=== PATIENT | female | born 1955 | race Caucasian/White ===

== ENCOUNTER → 2016-10-16 | Day surgery (SDC) | payer OTHER ==
--- NOTE | 2016-10-14 14:14 | MH ---
cc: Nick ADAMS M.D. DATE OF ADMISSION: 10/16/2016 ADMITTING DIAGNOSIS Internal derangement left knee with subluxating patella now for arthroscopy and lateral retinacular release. HISTORY OF PRESENT ILLNESS This pleasant 61-year-old female is being admitted today for arthroscopy of the left knee due to chondromalacia patella with some subluxation and possible loose bodies. PAST MEDICAL HISTORY 1. Arthritis. 2. Back pain. MEDICATIONS Current medications include: 1. Vitamin-B12. 2. Metoprolol. PAST SURGICAL HISTORY 1. Two left knee arthroscopies back in 1999 and 2001 for removal of loose bodies and chondroplasty. 2. Hemorrhoid surgery in the past as well. SOCIAL HISTORY She does not smoke, drinks occasionally. ALLERGIES No known allergies. REVIEW OF SYSTEMS Noncontributory. FAMILY HISTORY Noncontributory. PHYSICAL EXAMINATION GENERAL: We find a 61-year-old female well-developed, well-nourished oriented x3 complaining of pain in the left knee. VITAL SIGNS: Blood pressure 108/62, pulse 62 and regular, respirations 16, temperature 98.1, pulse oximetry 99% on room air. HEENT: Eyes PERRLA, EOMI. Ears, nose and mouth clear. NECK: Supple. LUNGS: Clear. HEART: Regular rate. ABDOMEN: Soft. Positive bowel sounds. Nontender. EXTREMITIES: The left knee is tender with crepitance on range of motion in the patellofemoral joint. IMPRESSION The impression at this time is chondromalacia patella with some subluxation. PLAN The plan is admission for arthroscopy and lateral retinacular release left knee today. The patient was given a prescription for postoperative pain control in the office. She understands to use Hibiclens scrub and Bactroban preoperatively. MD LUZ Spivey/NIKKI /2:00 PM /2:06 PM
[~2016-10-16] VITALS: Ht 172.7 cm; Wt 64.5 kg
[~2016-10-16] MED LIST: *MEPERIDINE 25 MG INJ VIAL PERIprocedural Use ONLY ONE; *morphine SULFATE 8 MG/ML PERIprocedure ONLY ONE; ACETAMINOPHEN 1000 MG/100 ML VIAL IV ONE; ACETAMINOPHEN/HYDROcodone 325 MG/5 MG TAB PO PRN; AUGM875T PO; BUPIVACAINE HCL PF 0.25% 30 ML VIAL INFIL ONE; BUPIVACAINE HCL PF 0.25% 30 ML VIAL ONE; CHLORHEXIDINE GLUCONATE 2 % 1 PACK (2 CLOTHS) TOPICAL PRN; CHLORHEXIDINE GLUCONATE 4% SOLN 120 ML BTL TOPICAL SCH; CYAN100025 SL; DO NOT ADM ANY ANTICOAGULANT DRUGS PRN; INSULIN HUMAN REGULAR 1,000 UNITS/10 ML VIAL SQ PRN; LACTATED RINGER'S 1000 ML INJ 1,000 ML IV ONE; LACTATED RINGER'S 1000 ML IV PRN; MEPERIDINE HCL 50 MG/ML VIAL IM PRN; METO25TA6 PO; METOPROLOL TARTRATE 25 MG TAB PO PRN; MIDAZOLAM HCL 2 MG/2 ML VIAL ONE; ONDANSETRON HCL 4 MG/2 ML VIAL IV PUSH ONE; ONDANSETRON HCL 4 MG/2 ML VIAL IV PUSH PRN; POVIDONE IODINE 5% (ANTISEPSIS KIT) 4 APPLICATIONS EACH NARE PRN; PROPOFOL 200 MG/20 ML AMP IV ONE; SODIUM CHLORID 0.9% 500 ML IV PRN; ceFAZolin 2 GM PREMIX 50 ML IV SCH; ePHEDrine/NS 25 MG/5 ML SYR IV ONE; fentaNYL CITRATE 250 MCG/5 ML AMP ONE
[2016-10-16 06:47] VITALS: BP 121/82; PULSE 60; RESP 18; TEMP 97.8; O2SAT 100
[2016-10-16 07:27] LABS: AUTOMATED NEUTROPHIL # 2.7 TH/MM3 (1.8-7.7); BASOPHIL % 0.6 % (0.0-2.0); EOSINOPHIL # 0.3 TH/MM3 (0-0.4); HEMATOCRIT 37.7 % (35.0-46.0); HEMO FLAGS DIFF FINAL; LYMPH % 37.8 % (9.0-44.0); MEAN CELL VOLUME 94.3 FL (80.0-100.0); MEAN CORPUSCULAR HEMOGLOBIN 32.1 PG (27.0-34.0); MEAN CORPUSCULAR HGB CONC 34.1 % (32.0-36.0); MONO % 7.3 % (0.0-8.0); NEUT % 49.3 % (16.0-70.0); PLATELET COUNT 295 TH/MM3 (150-450); RED CELL DISTRIBUTION WIDTH 13.1 % (11.6-17.2); WHITE BLOOD COUNT 5.4 TH/MM3 (4.0-11.0)
[2016-10-16 07:35] LABS: BACTERIA, URINE OCC /hpf; BLOOD, URINE TRACE (NEG); COMMENT (UR) CULTURE INDICATED; CULTURE IF INDICATED CULTURE INDICATED; GLUCOSE,URINE NEG (NEG); KETONE, URINE NEG (NEG); MUCUS URINE FEW /lpf (OCC); NITRITE,URINE NEG (NEG); PH, URINE 5.5 (5.0-8.5); PROTHROMBIN TIME - PATIENT 10.7 SEC (9.8-11.6); RENAL EPITHELIAL CELLS <1 /hpf; SQUAMOUS EPITHELIAL CELL URINE 4 /hpf (0-5); TRANSITIONAL EPI CELLS, URINE 2 /hpf; URINE COLOR YELLOW (YELLW/STRAW)
[2016-10-16 07:45] LABS: ALT (GPT) 22 U/L (10-53); ANION GAP 7 MEQ/L (5-15); AST (GOT) 17 U/L (15-37); BICARBONATE 28.9 MEQ/L (21.0-32.0); BLOOD UREA NITROGEN 18 MG/DL (7-18); CHLORIDE 104 MEQ/L (98-107); GLOMERULAR FILTRATION RATE 74 ML/MIN (>89); SODIUM (NA) 140 MEQ/L (136-145)
[2016-10-16 07:47] LABS: ALKALINE PHOSPHATASE 91 U/L (45-117); TOTAL BILIRUBIN ADULT 0.3 MG/DL (0.2-1.0)
--- NOTE | 2016-10-16 09:55 | HHI.PR ---
Immediate Post Op Note Procedure Date: October 16, 2016 Pre Op Diagnosis: Chondromalacia Left patella Post Op Diagnosis: Chondromalacia Left patella Left medial femoral loose body Surgeon: Modesto Parker MD Web Methods Developer(s): Beverly LAI Procedure: Left knee Arthroscopy with lateral retinacular release Left medial-femoral loose body Specimen(s) removed: none Estimated blood loss: 10cc Anesthesia: General Drains: None Patient to: PACU Patient Condition: Good Date/Time of Procedure: SEE SURGICAL CARE RECORD Beverly Elkins October 16, 2016 09:55
[2016-10-16 10:18] VITALS: BP 121/75; PULSE 57; RESP 18; TEMP 97.8; O2SAT 100
--- NOTE | 2016-10-16 15:22 | EKG ---
Date Performed: 10/16/2016 Time Performed: 06:57:10 PTAGE: 61 years EKG: SINUS BRADYCARDIA BORDERLINE ECG NO PREVIOUS TRACING DOCTOR: Yemi Davis Interpretating Date/Time 10/16/2016 15:21:06
--- NOTE | 2016-10-16 18:11 | MP ---
cc: Nick ADAMS DATE OF SURGERY 10/16/2016 PREOPERATIVE DIAGNOSIS Chondromalacia patella with subluxation and loose body POSTOPERATIVE DIAGNOSIS Chondromalacia patella with subluxation and loose body SURGERY PERFORMED Arthroscopy, excision of loose bodies from medial compartment and ArthroCare shaving of patellofemoral joint and lateral retinacular release of the left knee. SURGEON Dr. Ese Adams DELIVERY TECH SURGEON MING Amaya ANESTHESIA General intubation. PROCEDURE IN DETAIL The patient was brought to the operating room and placed on the operating room table in the supine position. After successful induction of general anesthesia, the patient's left leg was prepped and draped in the usual manner. The knee was then placed in a knee bell and tightened. Arthroscopic examination was then performed by making a stab wound over the proximal superior and medial aspect of the patellofemoral joint for insertion of the inflow cannula and fluid, followed by stab wounds over the medial and lateral joint margins respectively for insertion of the arthroscope, shaver and probe. Arthroscopic examination was then performed which revealed intact lateral compartment, intact anterior cruciate, a 7 mm loose body found by the medial femoral condyle, removed. The rest the medial compartment found to be grossly intact with minimal chondromalacia. Patellofemoral joint found to have grade 4 chondromalacia with eburnated bone and a large osteophyte off of the superior lateral aspect of patellofemoral joint which was removed using the ArthroCare 4.0 aggressive shaver. A chondroplasty was done using the ArthroCare wand along with a lateral retinacular release. The wound was irrigated copiously with lactated Ringer's solution. Excess fluid removed. 10 mL of 0.25% Marcaine plain inserted in the knee joint. Skin approximately with interrupted 4-0 nylon suture. Wet and then dry dressing applied to the wound followed by Xeroform gauze, sterile dressing, thigh-high Randell wrap, holding the patella in more medial tracking position and knee immobilizer. No drain utilized. Estimated blood loss 10 mL. The director of first impressions was utilized for setting up the procedure and helping with positioning and also for manipulation of the leg throughout the procedure and also for closure of the wound and application of dressing and knee immobilizer. The patient tolerated the procedure well and left the operating room in satisfactory condition. J. MD LUZ George/ /9:46 AM /5:59 PM
== END | disposition home or self-care (01) ==
LOC: HSDC 05:58
PROVIDERS: ATTEND Surgery
DX: M22.42 Chondromalacia patellae, left knee (principal); M23.42 Loose body in knee, left knee; R82.99 Other abnormal findings in urine; Z01.810 Encounter for preprocedural cardiovascular examination; Z01.818 Encounter for other preprocedural examination
CPT/HCPCS: 01400; 29873; 80053; 81001; 85025; 85610; 85730; 87086; 93005; E0113; J0131; J0690; J2175; J2250; J2270; J2405; J3010; J7120